=== PATIENT | female | born 1990 | race Caucasian/White ===

== ENCOUNTER → 2018-02-08 | Outpatient (CLI) | payer SELFPAY ==
--- NOTE | 2018-02-08 16:35 | RADIOLOGY REPORT (SQ) ---
EXAM DESCRIPTION: U/S EC4SEUH TRNABD 1GES W/ODOP COMPLETED DATE/TIME: 02/08/2018 3:28 pm REASON FOR STUDY: ENCOUNTER FOR SUPERVISION OF OTHER NORMAL , FIRST TRIMESTER Z34.81 ENCOU NTER FOR SUPRVSN OF NORMAL , FIRST TRIM COMPARISON: None. TECHNIQUE: Transabdominal static and realtime grayscale images acquired of the pelvis. Additional se lected spectral and color Doppler images recorded. All images stored on PACs. bHCG: None available LIMITATIONS: None. FINDINGS: FETUS: Living intrauterine . EGA: 9 weeks 0 days by crown-rump length ESDRAS: 09/13/2018 FHR: 169 beats per minute. SUBCHORIONIC BLEED: No SIZE OF BLEED: Not applicable. UTERUS: No masses. No anomalies. Uterus is 10 x 6 x 9 cm in size. CERVICAL LENGTH: 3.1 cm Closed. RIGHT ADNEXA: Not visualized due to bowel gas LEFT ADNEXA: Not visualized due to bowel gas FREE FLUID: None. OTHER: No other significant finding. IMPRESSION: LIVING INTRAUTERINE . EGA 9 weeks 0 days Trimester of : First - 0 to 13 weeks. TECHNICAL DOCUMENTATION: JOB ID: [id number] [employer]- All Rights Reserved Reading location - IP/workstation name: [email or web address]
== END ==
LOC: RAD 14:53
PROVIDERS: ATTEND Nurse Practitioner Women's Health
DX: Z34.81 Encounter for supervision of other normal pregnancy, first trimester (principal)
CPT/HCPCS: 76801

== ENCOUNTER 2018-05-14 18:11 | Outpatient (CLI) | payer MEDICAID ==
[2018-05-14 18:41] LABS: APPEARANCE,URINE CLEAR; BILIRUBIN,URINE NEGATIVE (NEGATIVE); COLOR,URINE COLORLESS; GLUCOSE, URINE NEGATIVE (NEGATIVE); KETONES,URINE NEGATIVE (NEGATIVE); LEUKOCYTE ESTERASE,URINE NEGATIVE (NEGATIVE); NITRITE,URINE NEGATIVE (NEGATIVE); PROTEIN,URINE NEGATIVE (NEGATIVE); URINE SPECIFIC GRAVITY 1.001; UROBILINOGEN,URINE NEGATIVE mg/dL (<2.0)
[2018-05-14 19:06] LABS: URINE AMPHETAMINES SCREEN NEGATIVE; URINE BARBITURATES SCREEN NEGATIVE; URINE BENZODIAZEPINES SCREEN NEGATIVE; URINE COCAINE SCREEN NEGATIVE; URINE MARIJUANA (THC) SCREEN NEGATIVE; URINE METHADONE SCREEN NEGATIVE; URINE PHENCYCLIDINE SCREEN NEGATIVE
[2018-05-14] MEDS ORDERED: TERBUTALINE SULFATE INJ/PF 1 MG/1 ML SDV SUBCUT ONE ×2 (19:26→20:45)
[2018-05-14] MEDS ORDERED: TERBUTALINE SULFATE INJ/PF 1 MG/1 ML SDV ONE ×2 (19:26→20:52)
[2018-05-14] MEDS ORDERED: RINGERS SOLUTION,LACTATED 1,000 ML IV PRN (19:28)
[2018-05-14] MEDS ORDERED: RINGERS SOLUTION,LACTATED 1,000 ML IV ONE (19:28)
--- NOTE | 2018-05-14 20:49 | RADIOLOGY REPORT (SQ) ---
EXAM DESCRIPTION: U/S OB LIMITED COMPLETED DATE/TIME: 05/14/2018 8:02 pm REASON FOR STUDY: cervical length for abd pain at 23 weeks COMPARISON: None. TECHNIQUE: Limited transvaginal grayscale ultrasound for evaluation of specific requested obstetrica l parameters. LIMITATIONS: None. FINDINGS: CERVICAL LENGTH: 5.2 cm Closed. FHR: 158 beats per minute. PRESENTATION: Cephalic. OTHER: No other significant findings. IMPRESSION: LIMITED OBSTETRICAL ULTRASOUND WITH MEASURED PARAMETERS DELINEATED ABOVE. Trimester of : Second trimester - 13 weeks 1 day to 27 weeks 6 days. TECHNICAL DOCUMENTATION: JOB ID: [id number] [employer]- All Rights Reserved Reading location - IP/workstation name: [email or web address]
== END 2018-05-14 21:37 | disposition home or self-care (01) ==
LOC: LC 18:11
PROVIDERS: ATTEND Obstetrics & Gynecology
PROC: 4A1HXCZ Monitoring of Products of Conception, Cardiac Rate, External Approach (ICD-10-PCS; principal; 2018-05-14)
DX: O47.03 False labor before 37 completed weeks of gestation, third trimester (principal); Z3A.23 23 weeks gestation of pregnancy
CPT/HCPCS: 94760; 81001; 80307; 76815; 59899; J3105

== ENCOUNTER 2018-06-24 | Inpatient (IN) | payer MEDICAID ==
[2018-06-24 00:42] LABS: APPEARANCE,URINE SLIGHTLY-CLOUDY; BILIRUBIN,URINE NEGATIVE (NEGATIVE); COLOR,URINE STRAW; GLUCOSE, URINE NEGATIVE (NEGATIVE); KETONES,URINE NEGATIVE (NEGATIVE); LEUKOCYTE ESTERASE,URINE SMALL (NEGATIVE); NITRITE,URINE NEGATIVE (NEGATIVE); PROTEIN,URINE NEGATIVE (NEGATIVE); URINE SPECIFIC GRAVITY 1.003; UROBILINOGEN,URINE NEGATIVE mg/dL (<2.0)
[2018-06-24 00:54] LABS: URINE AMPHETAMINES SCREEN NEGATIVE; URINE BARBITURATES SCREEN NEGATIVE; URINE BENZODIAZEPINES SCREEN NEGATIVE; URINE COCAINE SCREEN NEGATIVE; URINE MARIJUANA (THC) SCREEN NEGATIVE; URINE METHADONE SCREEN NEGATIVE; URINE PHENCYCLIDINE SCREEN NEGATIVE
[2018-06-24] MEDS ORDERED: RINGERS SOLUTION,LACTATED 1,000 ML IV PRN (00:54)
--- NOTE | 2018-06-24 01:49 | RADIOLOGY REPORT (SQ) ---
EXAM DESCRIPTION: US LIMITED COMPLETED DATE/TME: 06/24/2018 00:00 CLINICAL HISTORY: 27 years, Female, cervical length abd pain COMPARISON: 05/14/2018 TECHNIQUE: Limited third trimester obstetrical ultrasound for cervical length. FINDINGS: Cervical length: 1.6 cm and closed. Possible minimal funneling with the final measuring 0.2 x 0.3 cm presentation: Vertex heart rate: 139 bpm. IMPRESSION: 1. Cervical length of 1.6 cm. Minimal funneling. This is shorter than would be expected for patient's gestational age. Continued close follow-up recommended. 2010 [email or web address]- All Rights Reserved
[2018-06-24] MEDS ORDERED: MAGNESIUM SULFATE 4 GM/100 ML RTUPB IV ONE ×2 (02:14→02:40)
[2018-06-24] MEDS ORDERED: BETAMET ACET/BETAMET NA INJ 6 MG/1 ML ONE (02:14)
[2018-06-24] MEDS ORDERED: MAGNESIUM SULFATE 20 GM/500 ML RTUINJ IV ONE ×3 (02:15→22:46)
[2018-06-24] MEDS: MAGNESIUM SULFATE 20 GM/500 ML RTUINJ IV PRN ×3 (02:55→23:21)
[2018-06-24 02:57] LABS: ABSOLUTE BASOPHILS # (AUTO) 0.1 10^3/uL (0.0-0.2); ABSOLUTE EOSINOPHILS # (AUTO) 0.2 10^3/uL (0.0-0.6); ABSOLUTE LYMPHOCYTES (AUTO) 3.7 10^3/uL (0.5-4.7); ABSOLUTE MONOCYTES (AUTO) 0.6 10^3/uL (0.1-1.4); ABSOLUTE NEUT (AUTO) 8.9 10^3/uL (1.7-8.2); BASOPHILS % (AUTO) 0.9 % (0-2); EOSINOPHILS % (AUTO) 1.3 % (0-6); HEMATOCRIT 31.5 % (36.0-47.0); LYMPHOCYTES % (AUTO) 27.4 % (13-45); MEAN CORPUSCULAR HEMOGLOBIN 33.6 pg (27.0-33.4); MEAN CORPUSCULAR HGB CONC 34.9 g/dL (32.0-36.0); MEAN CORPUSCULAR VOLUME 96 fl (80-97); MONOCYTES % (AUTO) 4.8 % (3-13); PLATELET COUNT 202 10^3/uL (150-450); RED BLOOD COUNT 3.27 10^6/uL (3.72-5.28); RED CELL DISTRIBUTION WIDTH 12.6 % (11.5-14.0); SEGMENTED NEUTROPHILS % (AUTO) 65.6 % (42-78); TOTAL CELLS COUNTED % (AUTO) 100 %; WHITE BLOOD COUNT 13.6 10^3/uL (4.0-10.5)
[2018-06-24] MEDS ORDERED: BETAMET ACET/BETAMET NA INJ 6 MG/1 ML IM ONE (04:05)
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
[2018-06-24] MEDS ORDERED: BETAMET ACET/BETAMET NA INJ 6 MG/1 ML IM SCH ×2 (10:00)
[2018-06-24] MEDS ORDERED: ACETAMINOPHEN 325 MG TABLET ONE ×2 (11:16→18:19)
[2018-06-24] MEDS ORDERED: ACETAMINOPHEN 325 MG TABLET PO ONE ×2 (11:23→19:00)
[2018-06-25] MEDS ORDERED: ZOLPIDEM TARTRATE 5 MG TABLET ONE (00:39)
[2018-06-25] MEDS ORDERED: BETAMET ACET/BETAMET NA INJ 6 MG/1 ML IM ONE (02:00)
[2018-06-25] MEDS ORDERED: BETAMET ACET/BETAMET NA INJ 6 MG/1 ML ONE (02:29)
--- NOTE | 2018-06-25 06:50 | RADIOLOGY REPORT (SQ) ---
EXAM DESCRIPTION: US LIMITED COMPLETED DATE/TME: 06/25/2018 06:00 CLINICAL HISTORY: 27 years, Female, cervical length 28+2 COMPARISON: 06/24/2018 TECHNIQUE: Limited third trimester obstetrical ultrasound. FINDINGS: Cervical length: 1.8 cm and closed. No funneling identified on today's study however only transabdominal imaging was performed. presentation: Vertex heart rate: 149 bpm. LVP: 4.0 cm. IMPRESSION: 1. Cervical length of 1.8 cm. No definitely funneling identified on today's study. This is shorter than would be expected for patient's gestational age. 2011 [employer]- All Rights Reserved Electronically signed by: Cristian Llanos 06/25/2018 5:48 AM CDT
--- NOTE | 2018-08-04 11:24 | PDOC DISCHARGE SUMMARY ---
General - Admit/Disc Date/PCP Admission Date/Primary Care Provider: 06/24/18 02:04 Discharge Date: 06/25/18 - Discharge Diagnosis (1) Is this a current diagnosis for this admission?: Yes (2) Gestational hypertension Is this a current diagnosis for this admission?: Yes - Additional Information Home Medications: Vit/Iron Fum/Folic AC [ Tablet] 1 tab PO DAILY 05/14/18 Sertraline HCl [Zoloft] 25 mg PO DAILY 06/24/18 Acetaminophen [Tylenol 325 mg Tablet] 1,000 mg PO ONCE PRN 07/30/18 History of Present Illness History of Present Illness: CLAUDIA MIN is a 27 year old female Hospital Course Hospital Course: admitted for obsevation and evaluation of HTN labs wnl and bp acceptable range Physical Exam - Physical Exam General appearance: PRESENT: no acute distress Respiratory exam: PRESENT: clear to auscultation chantell GI/Abdominal exam: PRESENT: soft Extremities exam: PRESENT: other - d/c ed f/u in ofrfice Result Laboratory Results: 06/24/18 02:45 Impressions: Obstetrics Ultrasound 06/25/18 06:00 IMPRESSION: 1. Cervical length of 1.8 cm. No definitely funneling identified on today's study. This is shorter than would be expected for patient's gestational age. 2011 [employer]- All Rights Reserved
== END 2018-06-25 07:36 | disposition home or self-care (01) | DRG 781 ==
LOC: LC → LR 02:04
PROVIDERS: ADMIT Obstetrics & Gynecology; ATTEND Obstetrics & Gynecology
PROC: 4A1HXCZ Monitoring of Products of Conception, Cardiac Rate, External Approach (ICD-10-PCS; principal; 2018-06-24)
DX: O13.3 Gestational [pregnancy-induced] hypertension without significant proteinuria, third trimester (principal); O26.893 Other specified pregnancy related conditions, third trimester; O60.03 Preterm labor without delivery, third trimester; O26.873 Cervical shortening, third trimester; Z68.1 Body mass index [BMI] 19.9 or less, adult; R63.6 Underweight; O99.333 Smoking (tobacco) complicating pregnancy, third trimester; F17.210 Nicotine dependence, cigarettes, uncomplicated; Z3A.28 28 weeks gestation of pregnancy
CPT/HCPCS: 36415; 76815; 80307; 81001; 85025; 86592; 86850; 86900; 86901; 96372; J0702; J3475

== ENCOUNTER 2018-06-29 12:16 | Outpatient (CLI) | payer MEDICAID | END 2018-06-29 13:55 | disposition home or self-care (01) | LOC: LC 12:16 | PROVIDERS: ATTEND Obstetrics & Gynecology | PROC: 4A1HXCZ Monitoring of Products of Conception, Cardiac Rate, External Approach (ICD-10-PCS; principal; 2018-06-29) | DX: O47.03 False labor before 37 completed weeks of gestation, third trimester (principal); Z3A.29 29 weeks gestation of pregnancy ==

== ENCOUNTER 2018-07-18 13:44 | Outpatient (CLI) | payer MEDICAID ==
[2018-07-18 17:43] LABS: APPEARANCE,URINE SLIGHTLY-CLOUDY; BILIRUBIN,URINE NEGATIVE (NEGATIVE); COLOR,URINE YELLOW; GLUCOSE, URINE NEGATIVE (NEGATIVE); KETONES,URINE NEGATIVE (NEGATIVE); LEUKOCYTE ESTERASE,URINE NEGATIVE (NEGATIVE); NITRITE,URINE NEGATIVE (NEGATIVE); PROTEIN,URINE 30 mg/dL (NEGATIVE); URINE SPECIFIC GRAVITY 1.015; UROBILINOGEN,URINE NEGATIVE mg/dL (<2.0)
[2018-07-18 17:59] LABS: URINE AMPHETAMINES SCREEN NEGATIVE; URINE BARBITURATES SCREEN NEGATIVE; URINE BENZODIAZEPINES SCREEN NEGATIVE; URINE COCAINE SCREEN NEGATIVE; URINE METHADONE SCREEN NEGATIVE; URINE PHENCYCLIDINE SCREEN NEGATIVE
[2018-07-18 18:16] LABS: URINE MARIJUANA (THC) SCREEN UNCONFIRMED POSITIVE
== END 2018-07-18 16:05 | disposition home or self-care (01) ==
LOC: LC 13:44
PROVIDERS: ATTEND Obstetrics & Gynecology
PROC: 4A1HXCZ Monitoring of Products of Conception, Cardiac Rate, External Approach (ICD-10-PCS; principal; 2018-07-18)
DX: O47.03 False labor before 37 completed weeks of gestation, third trimester (principal); Z3A.31 31 weeks gestation of pregnancy
CPT/HCPCS: 81001; 80307; 59899; G0480 ×2; 80349

== ENCOUNTER 2018-07-30 11:48 | Outpatient (CLI) | payer MEDICAID ==
[2018-07-30 12:39] LABS: APPEARANCE,URINE SLIGHTLY-CLOUDY; BILIRUBIN,URINE NEGATIVE (NEGATIVE); COLOR,URINE AMBER; GLUCOSE, URINE NEGATIVE (NEGATIVE); KETONES,URINE NEGATIVE (NEGATIVE); LEUKOCYTE ESTERASE,URINE SMALL (NEGATIVE); NITRITE,URINE NEGATIVE (NEGATIVE); PROTEIN,URINE 30 mg/dL (NEGATIVE); URINE SPECIFIC GRAVITY 1.028
[2018-07-30 12:57] LABS: URINE AMPHETAMINES SCREEN NEGATIVE; URINE BARBITURATES SCREEN NEGATIVE; URINE BENZODIAZEPINES SCREEN NEGATIVE; URINE COCAINE SCREEN NEGATIVE; URINE METHADONE SCREEN NEGATIVE; URINE PHENCYCLIDINE SCREEN NEGATIVE
[2018-07-30 13:01] LABS: URINE MARIJUANA (THC) SCREEN UNCONFIRMED POSITIVE
--- NOTE | 2018-07-30 13:26 | Non Stress Test Report ---
Non Stress Test Datetime Report Generated by CPN: 07/30/2018 13:25 DEMOGRAPHIC EGA NST: 33.3 INDICATION Indication for Study: Other Indication for Study (NST) Other: Labor Check MONITORING Monitor Explained: Monitor Explained; Test Explained; Patient Verbalized Understanding Time on Monitor: 07/30/2018 12:06 Time off Monitor: 07/30/2018 13:10 NST Duration: 64 NST INTERVENTIONS NST Interventions: PO Hydration; Reposition Patient Physician Notified NST: Dr. Shaker BABY A: [id number] BABY A Movement : Present Contraction Frequency : occasional FHR Baseline : 135 Accelerations : 15X15 Variability : Moderate 6-25bpm NST Review: Meets Criteria for Reactive NST NST Review and Verified By : Fatou Bellavanccalderon RNC NST Results: Reactive NST REPORT Report Trigger: Send Report
--- NOTE | 2018-07-30 15:01 | PROGRESS NOTE E ---
Progress Note NAME: CLAUDIA MIN : 1990 AGE: 27Y DATE: 07/30/2018 ROOM: SUBJECTIVE: The patient is a 27-year-old G3, P2-0-0-2 at 33 weeks and 3 days gestational age. Presenting with a chief complaint of feeling wet on her underwear and pressure. The patient denies any vaginal bleeding or actual leakage of fluid that is visible. Reports good movement. Received this report from the nursing staff. Nursing staff has instructed me the patient has a reactive NST, category I strip with basal heart rates of 140s, present accelerations, and no decelerations, with moderate variability. There was one contraction on toco within a 45 minute window strip. Also, the nursing staff has obtained a urinalysis that was inconclusive for UTI and unremarkable overall. Also, the nursing staff obtained a swab to rule out rupture and that ROM swab rupture kit came back negative for rupture. I have instructed the nursing staff to go ahead and perform a cervical exam on the patient. OBJECTIVE: The patient was found to be 1.5 to 2 cm dilated, thick, and completely high on the cervical exam. PLAN: The patient, due to her multiparity status and with this cervical exam, was given reassurance coupled with no contraction pattern visible on the monitor, and the patient being not so uncomfortable and with a negative rupture membrane evaluation. The patient was instructed to follow up with primary MARINE DIESEL TECHNICIAN on Wednesday, and labor precautions were given to the patient via nursing staff. DICTATING PHYSICIAN: Jasmyn Davies MD [id number] PHY#: [id number] ID: [id number] JOB#: [id number] ACCT: [id number] cc: >
== END 2018-07-30 13:15 | disposition home or self-care (01) ==
LOC: LC 11:48
PROVIDERS: ATTEND Obstetrics & Gynecology
PROC: 4A1HXCZ Monitoring of Products of Conception, Cardiac Rate, External Approach (ICD-10-PCS; principal; 2018-07-30)
DX: O26.893 Other specified pregnancy related conditions, third trimester (principal); E86.0 Dehydration; Z3A.33 33 weeks gestation of pregnancy
CPT/HCPCS: 81001; 80307; 84112; 59025; G0480 ×2; 80349

== ENCOUNTER 2018-08-14 14:44 | Inpatient (IN) | payer MEDICAID ==
[2018-08-14] MEDS ORDERED: PENICILLIN G-K 5 MILLION UNIT VIAL ONE ×2 (15:34→20:08)
[2018-08-14 15:40] LABS: APPEARANCE,URINE CLOUDY; BILIRUBIN,URINE NEGATIVE (NEGATIVE); COLOR,URINE AMBER; GLUCOSE, URINE NEGATIVE (NEGATIVE); KETONES,URINE TRACE mg/dL (NEGATIVE); LEUKOCYTE ESTERASE,URINE LARGE (NEGATIVE); NITRITE,URINE NEGATIVE (NEGATIVE); PROTEIN,URINE 30 mg/dL (NEGATIVE); URINE SPECIFIC GRAVITY 1.027
[2018-08-14 15:55] LABS: URINE AMPHETAMINES SCREEN NEGATIVE; URINE BARBITURATES SCREEN NEGATIVE; URINE BENZODIAZEPINES SCREEN NEGATIVE; URINE COCAINE SCREEN NEGATIVE; URINE MARIJUANA (THC) SCREEN NEGATIVE; URINE METHADONE SCREEN NEGATIVE; URINE PHENCYCLIDINE SCREEN NEGATIVE
[2018-08-14] MEDS ORDERED: RINGERS SOLUTION,LACTATED 1,000 ML IV ONE (16:28)
[2018-08-14] MEDS ORDERED: PENICILLIN G POTASSIUM 5,000,000 UNIT in DEXTROSE 5%-WATER 100 ML IV ONE (16:28)
[2018-08-14] MEDS ORDERED: RINGERS SOLUTION,LACTATED 1,000 ML IV PRN (16:28)
[2018-08-14 17:08] LABS: ABSOLUTE EOSINOPHILS # (AUTO) 0.1 10^3/uL (0.0-0.6); ABSOLUTE MONOCYTES (AUTO) 0.7 10^3/uL (0.1-1.4); ABSOLUTE NEUT (AUTO) 9.1 10^3/uL (1.7-8.2); BASOPHILS % (AUTO) 0.4 % (0-2); EOSINOPHILS % (AUTO) 0.4 % (0-6); HEMATOCRIT 35.3 % (36.0-47.0); HEMOGLOBIN 12.2 g/dL (12.0-15.5); LYMPHOCYTES % (AUTO) 23.1 % (13-45); MEAN CORPUSCULAR HEMOGLOBIN 32.5 pg (27.0-33.4); MEAN CORPUSCULAR HGB CONC 34.4 g/dL (32.0-36.0); MEAN CORPUSCULAR VOLUME 95 fl (80-97); MONOCYTES % (AUTO) 5.4 % (3-13); PLATELET COUNT 209 10^3/uL (150-450); RED BLOOD COUNT 3.74 10^6/uL (3.72-5.28); RED CELL DISTRIBUTION WIDTH 13.5 % (11.5-14.0); SEGMENTED NEUTROPHILS % (AUTO) 70.7 % (42-78); TOTAL CELLS COUNTED % (AUTO) 100 %; WHITE BLOOD COUNT 12.9 10^3/uL (4.0-10.5)
[2018-08-14] MEDS ORDERED: VALACYCLOVIR HCL 500 MG TABLET PO ONE (18:00)
--- NOTE | 2018-08-14 18:13 | RADIOLOGY REPORT (SQ) ---
EXAM DESCRIPTION: U/S OB LIMITED COMPLETED DATE/TIME: 08/14/2018 6:00 pm REASON FOR STUDY: 35wks, labor, EFW, pres, fluid COMPARISON: None. TECHNIQUE: Limited transvaginal grayscale ultrasound for evaluation of specific requested obstetrica l parameters. LIMITATIONS: None. FINDINGS: CERVICAL LENGTH: Not assessed ETHAN: 14.6 is cm. FHR: 139 beats per minute. PRESENTATION: Cephalic. PLACENTA: Posterior ANATOMY: Not assessed OTHER: No other significant findings. IMPRESSION: LIMITED OBSTETRICAL ULTRASOUND WITH MEASURED PARAMETERS DELINEATED ABOVE. Trimester of : Third trimester - 28 weeks to delivery. TECHNICAL DOCUMENTATION: JOB ID: [id number] [employer]- All Rights Reserved Reading location - IP/workstation name: [email or web address]
[2018-08-14 18:25] LABS: CHLAM PCR NOT DETECTED (NOT DETECT); GON PCR NOT DETECTED (NOT DETECT)
[2018-08-14] MEDS ORDERED: VALACYCLOVIR HCL 500 MG TABLET ONE (19:10)
[2018-08-14] MEDS ORDERED: ACETAMINOPHEN 325 MG TABLET ONE (20:05)
[2018-08-14] MEDS: PENICILLIN G POTASSIUM 2,500,000 UNIT in DEXTROSE 5%-WATER 50 ML IV SCH (20:16)
[2018-08-14] MEDS ORDERED: LIDOCAINE 1% INJ-PF (10 MG/ML) 30 ML SDV ONE (20:27)
[2018-08-14] MEDS ORDERED: MISOPROSTOL 0.2 MG TABLET ONE (20:27)
[2018-08-14] MEDS ORDERED: OXYTOCIN/NORMAL SALINE 20 UNIT/1,000 ML RTUINJ ONE (20:27)
[2018-08-14] MEDS ORDERED: EPHEDRINE SULFATE INJ 50 MG/1 ML AMPULE ONE (20:36)
[2018-08-14] MEDS ORDERED: BUPIVACAINE HCL 0.5 % INJ/PF 30 ML SDV ONE (20:36)
[2018-08-14] MEDS ORDERED: FENTANYL/BUPIVACAINE/NS/PF 300 MCG/150 ML RTUINJ EPI ONE (20:36)
[2018-08-15] MEDS ORDERED: PENICILLIN G-K 5 MILLION UNIT VIAL ONE ×2 (00:09→04:05)
[2018-08-15] MEDS: PENICILLIN G POTASSIUM 2,500,000 UNIT in DEXTROSE 5%-WATER 50 ML IV SCH ×2 (00:14→04:12)
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
[2018-08-15] MEDS ORDERED: ONDANSETRON HCL INJ/PF 4 MG/2 ML SDV ONE (05:13)
[2018-08-15] MEDS ORDERED: ONDANSETRON HCL INJ/PF 4 MG/2 ML SDV IV ONE (05:14)
[2018-08-15] MEDS ORDERED: GLYCERIN/WITCH HAZEL LEAF 1 EACH MED..PAD TP PRN (06:54)
[2018-08-15] MEDS ORDERED: PSEUDOEPHEDRINE HCL 30 MG TABLET PO PRN (06:54)
[2018-08-15] MEDS ORDERED: ACETAMINOPHEN 650 MG SUPP.RECT PR PRN (06:54)
[2018-08-15] MEDS ORDERED: DIPHENHYDRAMINE HCL 25 MG CAPSULE PO PRN (06:54)
[2018-08-15] MEDS ORDERED: PROMETHAZINE HCL INJ 25 MG/1 ML VIAL IV PRN (06:54)
[2018-08-15] MEDS ORDERED: BENZOCAINE/MENTHOL AEROSOL SPRAY 56 ML TOP PRN (06:54)
[2018-08-15] MEDS ORDERED: OXYTOCIN/NORMAL SALINE 20 UNIT/1,000 ML RTUINJ IV PRN (06:54)
[2018-08-15] MEDS ORDERED: PROMETHAZINE HCL 25 MG TABLET PO PRN (06:54)
[2018-08-15] MEDS ORDERED: DIPH/PERTUSS(ACELL)/TETANUS VAC/PF 0.5 ML SYR (>=10YO) IM PRN (06:54)
[2018-08-15] MEDS ORDERED: MAGNESIUM HYDROXIDE SUSP 30 ML UDCUP PO PRN (06:54)
[2018-08-15] MEDS ORDERED: DIBUCAINE 1% OINTMENT 28 GM TP PRN (06:54)
[2018-08-15] MEDS ORDERED: PROMETHAZINE HCL 25 MG SUPP.RECT PR PRN (06:54)
[2018-08-15] MEDS ORDERED: ACETAMINOPHEN WITH CODEINE #3 TABLET PO PRN (06:54)
[2018-08-15] MEDS ORDERED: NA PHOS,M-B/NA PHOS,DI-BA (ADULT) 133 ML ENEMA PR PRN (06:54)
[2018-08-15] MEDS ORDERED: ZOLPIDEM TARTRATE 5 MG TABLET PO PRN (06:54)
[2018-08-15] MEDS ORDERED: MEASLES,MUMPS&RUBELLA VACC/PF 0.5 ML VIAL SUBCUT PRN (06:54)
[2018-08-15] MEDS ORDERED: IBUPROFEN 800 MG TABLET ONE (07:52)
[2018-08-15 10:19] LABS: ABSOLUTE BASOPHILS # (AUTO) 0.1 10^3/uL (0.0-0.2); ABSOLUTE EOSINOPHILS # (AUTO) 0.1 10^3/uL (0.0-0.6); ABSOLUTE LYMPHOCYTES (AUTO) 2.9 10^3/uL (0.5-4.7); ABSOLUTE MONOCYTES (AUTO) 0.9 10^3/uL (0.1-1.4); ABSOLUTE NEUT (AUTO) 13.3 10^3/uL (1.7-8.2); BASOPHILS % (AUTO) 0.4 % (0-2); EOSINOPHILS % (AUTO) 0.4 % (0-6); HEMATOCRIT 31.6 % (36.0-47.0); HEMOGLOBIN 10.8 g/dL (12.0-15.5); LYMPHOCYTES % (AUTO) 16.6 % (13-45); MEAN CORPUSCULAR HEMOGLOBIN 32.6 pg (27.0-33.4); MEAN CORPUSCULAR HGB CONC 34.3 g/dL (32.0-36.0); MEAN CORPUSCULAR VOLUME 95 fl (80-97); MONOCYTES % (AUTO) 5.2 % (3-13); PLATELET COUNT 165 10^3/uL (150-450); RED BLOOD COUNT 3.33 10^6/uL (3.72-5.28); RED CELL DISTRIBUTION WIDTH 13.4 % (11.5-14.0); SEGMENTED NEUTROPHILS % (AUTO) 77.4 % (42-78); TOTAL CELLS COUNTED % (AUTO) 100 %; WHITE BLOOD COUNT 17.2 10^3/uL (4.0-10.5)
[2018-08-15 10:48] LABS: ALANINE AMINOTRANSFERASE 14 U/L (9-52); ALBUMIN 2.5 g/dL (3.5-5.0); ALKALINE PHOSPHATASE 177 U/L (38-126); ANION GAP 8 (5-19); ASPARTATE AMINO TRANSFERASE 26 U/L (14-36); BILIRUBIN,DIRECT 0.2 mg/dL (0.0-0.4); BLOOD UREA NITROGEN 3 mg/dL (7-20); CALCIUM 8.7 mg/dL (8.4-10.2); CARBON DIOXIDE 22 mmol/L (22-30); CHLORIDE 108 mmol/L (98-107); GLUCOSE 86 mg/dL (75-110); POTASSIUM 3.6 mmol/L (3.6-5.0); SODIUM 137.6 mmol/L (137-145); TOTAL PROTEIN 4.9 g/dL (6.3-8.2); URIC ACID 4.8 mg/dL (2.5-6.2)
--- NOTE | 2018-08-15 12:04 | Delivery Summary ---
Del Sum A-C Datetime Report Generated by CPN: 08/15/2018 12:03 DELIVERY PERSONNEL DELIVERY PERSONNEL: [id number] Delivery Doctor:: Fannie Craig MD Anesthesiologist:: Arpan Wilson MD Labor and Delivery Nurse:: Danielle Koch RNsupervisor taping Nurse:: Casandra Degroot RN Heating Equipment Installer:: Estee Smalls RN Nursery Nurse:: Carlene Winters RN Nursery Nurse:: Yumiko Rowland RN Awnings Mechanic/HANDKERCHIEF PRESSER: Prema Dasilva, ST MATERNAL INFORMATION Delivery Anesthesia: Epidural Medications After Delivery: Pitocin Drip 20 Units/1000ml NSS Provider Comments: VMI delivered in FELICIANO presentation. No nuchal cord. Shoulders and body delivered without difficulty. Cord doubly clamped and cut and to maternal abdomen. Placenta delivered intact spontaneously. FF at U. Good hemostasis. NICU present for baby due to ega. No perineal lacerations. LABOR SUMMARY EDC: 09/14/2018 00:00 No. Babies in Womb: 1 Attempted: No Labor Anesthesia: Epidural LABOR INFORMATION Reason for Induction: Not Applicable Onset of Labor: 08/14/2018 20:19 Complete Dilatation: 08/15/2018 06:28 Oxytocin: N/A Group B Beta Strep: Unknown Antibiotics # of Doses: 4 Antibiotics Time of Last Dose: 0411 Name of Antibiotic Given: Penicillin Steroids Given: Full Course; > 24 Hours before Delivery Reason Steroids Not Administered: Not Applicable MEMBRANES Membranes Rupture Method: Artificial Rupture of Membranes: 08/15/2018 05:23 Length of Rupture (hr): 1.25 Amniotic Fluid Color: Clear Amniotic Fluid Amount: Large STAGES OF LABOR Stage 1 hr: 10 Stage 1 min: 9 Stage 2 hr: 0 Stage 2 min: 10 Stage 3 hr: 0 Stage 3 min: 0 Total Time in Labor hr: 10 Total Time in Labor min: 19 VAGINAL DELIVERY Episiotomy: None Laceration #1: None Laceration Extension #1: N/A Laceration Repair: Not Applicable Sponge Count Correct: N/A Sharps Count Correct: N/A CSECTION DELIVERY Primary Indication: N/A Secondary Indication: N/A CSection Incidence: N/A Labor: N/A Elective: N/A CSection Incision: N/A BABY A INFORMATION Infant Delivery Date/Time: 08/15/2018 06:38 Method of Delivery: Vaginal Born in Route : No : N/A Forceps: N/A Vacuum Extraction: N/A Shoulder Dystocia : No PRESENTATION/POSITION BABY A Presentation: Cephalic Cephalic Presentation: Vertex Vertex Position: Right Occipital Anterior Breech Presentation: N/A PLACENTA INFORMATION BABY A Placenta Delivery Time : 08/15/2018 06:38 Placenta Method of Delivery: Spontaneous Placenta Status: Delivered INFORMATION BABY A Gestational Age at Delivery: 35.5 Gestational Status: Late - 34- 36.6 Weeks Infant Outcome : Liveborn Condition : Fair Sex: Male IDENTIFICATION BABY A Verification Date/Time: 08/15/2018 06:55 ID Band Number: [id number] Mother's Name Verified: Yes RN Verifying Infant: M. August RN, A. Slim RN WEIGHT/LENGTH BABY A Length (in): 18.00 Infant Length (cm): 45.72 CORD INFORMATION BABY A No. Cord Vessels: 3 Nuchal Cord : N/A Cord Blood Taken: Yes-For Eval (Mom's Blood Type - or O+) Suction: Mouth; Nose ASSESSMENT BABY A Skin to Skin: No BABY B INFORMATION : N/A SIGNATURES Signature: with User ID: [email or web address]
[2018-08-15] MEDS: DOCUSATE SODIUM 100 MG CAPSULE PO SCH ×2 (14:35→18:49)
[2018-08-15] MEDS: PRENATAL VITAMIN W DHA CAPSULE PO SCH (14:36)
[2018-08-15] MEDS: SENNOSIDES/DOCUSATE 8.6-50 MG 1 EACH TABLET PO SCH (14:36)
[2018-08-15] MEDS: FAMOTIDINE 20 MG TABLET PO SCH ×2 (14:36→20:59)
[2018-08-15] MEDS: FERROUS SULFATE 325 MG TABLET PO SCH ×2 (14:36→18:49)
[2018-08-15] MEDS: VALACYCLOVIR HCL 500 MG TABLET PO SCH (14:37)
[2018-08-15] MEDS: IBUPROFEN 800 MG TABLET PO SCH ×2 (14:41→20:58)
[2018-08-15] MEDS: ACETAMINOPHEN WITH CODEINE #3 TABLET PO PRN (19:46)
[2018-08-16] MEDS: ACETAMINOPHEN WITH CODEINE #3 TABLET PO PRN (04:12)
[2018-08-16] MEDS: IBUPROFEN 800 MG TABLET PO SCH ×3 (05:52→21:38)
[2018-08-16] MEDS ORDERED: PENICILLIN G-K 5 MILLION UNIT VIAL IV SCH (07:15)
[2018-08-16 08:35] LABS: HEMATOCRIT 28.8 % (36.0-47.0); HEMOGLOBIN 9.9 g/dL (12.0-15.5); MEAN CORPUSCULAR HEMOGLOBIN 32.9 pg (27.0-33.4); MEAN CORPUSCULAR HGB CONC 34.5 g/dL (32.0-36.0); MEAN CORPUSCULAR VOLUME 95 fl (80-97); PLATELET COUNT 167 10^3/uL (150-450); RED BLOOD COUNT 3.02 10^6/uL (3.72-5.28); RED CELL DISTRIBUTION WIDTH 13.4 % (11.5-14.0); WHITE BLOOD COUNT 12.6 10^3/uL (4.0-10.5)
--- NOTE | 2018-08-16 09:02 | PDOC PROGRESS REPORT ---
Subjective-OB Progress Note for:: 08/16/18 Subjective: Doing well, tired, bruised area on rt arm from IV, walking, voiding, desires circumcision Physical Exam (OB) Vital Signs: Temp Pulse Resp BP Pulse Ox 98.0 F 83 16 123/87 H 97 08/16/18 07:45 08/16/18 07:45 08/16/18 07:45 08/16/18 07:45 08/16/18 07:45 Intake & Output 08/15/18 08/16/18 08/17/18 06:59 06:59 06:59 Intake Total 100 540 Balance 100 540 Weight 42.3 kg - PIH/Pre-Eclampsia Clonus: Negative Headache: Absent Epigastric Pain: No Visual Changes: No - Lochia Lochia Amount: Scant < 10 ml Lochia Color: Rubra/Red - Abdomen Description: Soft, Flat Hernia Present: No Fundal Description: Firm Fundal Height: u/u - u/2 Objective-Diagnostic Laboratory: 08/16/18 07:30 08/15/18 10:00 08/15/18 08/15/18 08/16/18 10:00 10:08 07:30 WBC 17.2 H 12.6 H RBC 3.33 L 3.02 L Hgb 10.8 L 9.9 L Hct 31.6 L 28.8 L MCV 95 95 MCH 32.6 32.9 MCHC 34.3 34.5 RDW 13.4 13.4 Plt Count 165 167 Seg Neutrophils % 77.4 Lymphocytes % 16.6 Monocytes % 5.2 Eosinophils % 0.4 Basophils % 0.4 Absolute Neutrophils 13.3 H Absolute Lymphocytes 2.9 Absolute Monocytes 0.9 Absolute Eosinophils 0.1 Absolute Basophils 0.1 Sodium 137.6 Potassium 3.6 Chloride 108 H Carbon Dioxide 22 Anion Gap 8 BUN 3 L Creatinine 0.58 Est GFR ( Amer) > 60 Est GFR (Non-Af Amer) > 60 Glucose 86 Uric Acid 4.8 Calcium 8.7 Total Bilirubin 1.0 AST 26 ALT 14 Alkaline Phosphatase 177 H Total Protein 4.9 L Albumin 2.5 L Assessment and Plan(PN) - Assessment and Plan (1) Depression Qualifiers: Depression Type: unspecified Qualified Code(s): F32.9 - Major depressive disorder, single episode, unspecified Is this a current diagnosis for this admission?: Yes (2) Anxiety Is this a current diagnosis for this admission?: Yes (3) delivery Is this a current diagnosis for this admission?: Yes - Time Spent with Patient Time with patient: Less than 15 minutes Medications reviewed and adjusted accordingly: Yes - Disposition Anticipated Discharge: Home Within: within 24 hours
[2018-08-16] MEDS: FAMOTIDINE 20 MG TABLET PO SCH ×2 (09:27→21:37)
[2018-08-16] MEDS: VALACYCLOVIR HCL 500 MG TABLET PO SCH (09:27)
[2018-08-16] MEDS: DOCUSATE SODIUM 100 MG CAPSULE PO SCH ×2 (09:27→17:30)
[2018-08-16] MEDS: FERROUS SULFATE 325 MG TABLET PO SCH ×2 (09:28→17:30)
[2018-08-16] MEDS: SENNOSIDES/DOCUSATE 8.6-50 MG 1 EACH TABLET PO SCH (09:28)
[2018-08-16] MEDS: PRENATAL VITAMIN W DHA CAPSULE PO SCH (09:28)
[2018-08-17] MEDS: IBUPROFEN 800 MG TABLET PO SCH ×2 (06:39→13:25)
[2018-08-17] MEDS: ACETAMINOPHEN WITH CODEINE #3 TABLET PO PRN (08:30)
[2018-08-17 08:35] VITALS: BP 142/86
--- NOTE | 2018-08-17 09:39 | PDOC DISCHARGE SUMMARY ---
Final Diagnosis Discharge Date: 08/17/18 - day #2, doing well, breast/ bottlefeeding O+ Rubella NI - Final Diagnosis (1) Anemia Is this a current diagnosis for this admission?: Yes (2) Anxiety Is this a current diagnosis for this admission?: Yes (3) Delivery normal Is this a current diagnosis for this admission?: Yes (4) Depression Is this a current diagnosis for this admission?: Yes (5) delivery Is this a current diagnosis for this admission?: Yes (6) labor Is this a current diagnosis for this admission?: Yes (7) Is this a current diagnosis for this admission?: Yes Discharge Data - Discharge Medication Prescriptions: Ibuprofen [Motrin 800 mg Tablet] 800 mg PO Q8 #60 tablet Home Medications: Vit/Iron Fum/Folic AC [ Tablet] 1 tab PO DAILY 05/14/18 Sertraline HCl [Zoloft] 25 mg PO DAILY 06/24/18 Ibuprofen [Motrin 800 mg Tablet] 800 mg PO Q8 #60 tablet 08/17/18 Reason(s) for Admission: Onset of Labor Procedures: Ultrasound Intrapartum Procedure(s): Spontaneous Vaginal Delivery - Diagnosis Test Laboratory: Temp Pulse Resp BP Pulse Ox 98.3 F 57 L 17 142/86 H 97 08/17/18 08:34 08/17/18 08:34 08/17/18 08:34 08/17/18 08:34 08/17/18 08:34 08/14/18 08/14/18 08/15/18 14:45 16:54 10:08 RBC 3.74 3.33 L Hgb 12.2 10.8 L Hct 35.3 L 31.6 L Urine Opiates Screen NEGATIVE 08/16/18 07:30 RBC 3.02 L Hgb 9.9 L Hct 28.8 L Urine Opiates Screen - Discharge information/Instructions Discharge Activity: Activity As Tolerated, No Lifting Over 10 Pounds, Pelvic Rest Discharge Diet: As Tolerated, Regular Disposition: HOME, SELF-CARE Follow up with: [facility] in: 4, Weeks
[2018-08-17] MEDS: FAMOTIDINE 20 MG TABLET PO SCH (09:42)
[2018-08-17] MEDS: SENNOSIDES/DOCUSATE 8.6-50 MG 1 EACH TABLET PO SCH (09:42)
[2018-08-17] MEDS: FERROUS SULFATE 325 MG TABLET PO SCH (09:42)
[2018-08-17] MEDS: VALACYCLOVIR HCL 500 MG TABLET PO SCH (09:42)
[2018-08-17] MEDS: DOCUSATE SODIUM 100 MG CAPSULE PO SCH (09:43)
[2018-08-17] MEDS: PRENATAL VITAMIN W DHA CAPSULE PO SCH (09:43)
== END 2018-08-17 14:35 | disposition home or self-care (01) | DRG 806 ==
LOC: LC 14:44 → LR 15:39 → 2S 08-15 11:55
PROVIDERS: ADMIT Student in an Organized Health Care Education/Training Program; ATTEND Student in an Organized Health Care Education/Training Program
PROC: 10E0XZZ Delivery of Products of Conception, External Approach (ICD-10-PCS; principal; 2018-08-15)
DX: O60.14X0 Preterm labor third trimester with preterm delivery third trimester, not applicable or unspecified (principal); O26.873 Cervical shortening, third trimester; Z37.0 Single live birth; O75.89 Other specified complications of labor and delivery; O99.334 Smoking (tobacco) complicating childbirth; F17.210 Nicotine dependence, cigarettes, uncomplicated; O99.344 Other mental disorders complicating childbirth; F41.8 Other specified anxiety disorders; O99.02 Anemia complicating childbirth; Z3A.35 35 weeks gestation of pregnancy
CPT/HCPCS: 36415; 76815; 80053; 80307; 81001; 83615; 84550; 85025; 85027; 86850; 86900; 86901; 87491; 87591; 88307; J2405; J2540; J2590; J3010; J3490

== ENCOUNTER 2019-01-08 00:11 | Emergency (ER) | payer MEDICAID ==
[2019-01-08 01:16] VITALS: BP 121/81
--- NOTE | 2019-01-08 12:27 | EKG REPORT ---
SEVERITY:- NORMAL ECG - SINUS RHYTHM : Confirmed by: Kaye Guido MD 08-Jan-2019 12:26:45
== END 2019-01-08 03:09 | disposition left against medical advice (07) ==
LOC: ER 00:11
DX: Z53.21 Procedure and treatment not carried out due to patient leaving prior to being seen by health care provider (principal)
CPT/HCPCS: 93005; 93010

== ENCOUNTER → 2020-03-22 | Outpatient (CLI) | payer MEDICAID ==
[2020-03-22 12:32] LABS: ABSOLUTE BASOPHILS # (AUTO) 0.1 10^3/uL (0.0-0.2); ABSOLUTE EOSINOPHILS # (AUTO) 0.3 10^3/uL (0.0-0.6); ABSOLUTE LYMPHOCYTES (AUTO) 3.3 10^3/uL (0.5-4.7); ABSOLUTE MONOCYTES (AUTO) 0.5 10^3/uL (0.1-1.4); ABSOLUTE NEUT (AUTO) 4.6 10^3/uL (1.7-8.2); BASOPHILS % (AUTO) 0.6 % (0-2); EOSINOPHILS % (AUTO) 3.8 % (0-6); HEMATOCRIT 43.1 % (36.0-47.0); HEMOGLOBIN 14.7 g/dL (12.0-15.5); LYMPHOCYTES % (AUTO) 37.3 % (13-45); MEAN CORPUSCULAR HEMOGLOBIN 31.9 pg (27.0-33.4); MEAN CORPUSCULAR VOLUME 94 fl (80-97); MONOCYTES % (AUTO) 5.3 % (3-13); PLATELET COUNT 299 10^3/uL (150-450); TOTAL CELLS COUNTED % (AUTO) 100 %; WHITE BLOOD COUNT 8.8 10^3/uL (4.0-10.5)
--- NOTE | 2020-03-22 12:55 | RADIOLOGY REPORT (SQ) ---
EXAM DESCRIPTION: HAND RIGHT 3 VIEWS IMAGES COMPLETED DATE/TIME: 03/22/2020 12:43 pm REASON FOR STUDY: SWELLING OF JOINT OF RT HAND M25.441 EFFUSION, RIGHT HAND M25.541 PAIN IN JOINTS OF RIGHT HAND COMPARISON: None. EXAM PARAMETERS: NUMBER OF VIEWS: Three views. TECHNIQUE: AP, lateral and oblique radiographic images acquired of the right hand. LIMITATIONS: None. FINDINGS: MINERALIZATION: Normal. BONES: No acute fracture or dislocation. No worrisome bone lesions. JOINTS: No effusions. SOFT TISSUES: No soft tissue swelling. No foreign body. OTHER: No other significant finding. IMPRESSION: NEGATIVE STUDY OF THE RIGHT HAND. NO RADIOGRAPHIC EVIDENCE OF ACUTE INJURY. TECHNICAL DOCUMENTATION: JOB ID: [id number] 2010 [employer]- All Rights Reserved Reading location - IP/workstation name: [email or web address]
[2020-03-22 13:11] LABS: ERYTHROCYTE SEDIMENTATION RATE 9 mm/hr (0-20)
== END ==
LOC: OD 11:46
PROVIDERS: ATTEND Nurse Practitioner Family
DX: M25.441 Effusion, right hand (principal); M25.541 Pain in joints of right hand
CPT/HCPCS: 36415; 85025; 85652; 86140; 86200; 86431

== ENCOUNTER → 2020-04-18 | Outpatient (CLI) | payer MEDICAID ==
--- NOTE | 2020-04-18 12:31 | RADIOLOGY REPORT (SQ) ---
EXAM DESCRIPTION: KNEE LEFT 3 VIEWS IMAGES COMPLETED DATE/TIME: 04/18/2020 10:14 am REASON FOR STUDY: PAIN IN LEFT KNEE M25.562 PAIN IN LEFT KNEE COMPARISON: None. NUMBER OF VIEWS: Three views. TECHNIQUE: AP, lateral, and sunrise patella radiographic images acquired of the left knee. LIMITATIONS: None. FINDINGS: MINERALIZATION: Normal. BONES: No acute fracture or dislocation. No worrisome bone lesions. JOINT: No effusion. SOFT TISSUES: No soft tissue swelling. No radio-opaque foreign body. OTHER: No other significant finding. IMPRESSION: NEGATIVE STUDY OF THE LEFT KNEE. NO RADIOGRAPHIC EVIDENCE OF ACUTE INJURY. TECHNICAL DOCUMENTATION: JOB ID: [id number] 2010 [employer]- All Rights Reserved Reading location - IP/workstation name: [email or web address]
== END ==
LOC: OD 09:58
PROVIDERS: ATTEND Nurse Practitioner Family
DX: M25.562 Pain in left knee (principal)